=== PATIENT | female | born 1970 | race Caucasian/White ===

== ENCOUNTER → 2020-04-05 | Outpatient (CLI) | payer BC | LOC: ORTHO 10:37 | PROVIDERS: ATTEND Orthopaedic Surgery | DX: M17.0 Bilateral primary osteoarthritis of knee (principal); Z98.51 Tubal ligation status; Z90.710 Acquired absence of both cervix and uterus | CPT/HCPCS: 20610; G0463 ==

== ENCOUNTER → 2020-05-15 | Outpatient (CLI) | payer BC | LOC: ORTHO 10:54 | PROVIDERS: ATTEND Orthopaedic Surgery | DX: M17.11 Unilateral primary osteoarthritis, right knee (principal); M17.12 Unilateral primary osteoarthritis, left knee | CPT/HCPCS: 20610; G0463 ==

== ENCOUNTER 2023-04-11 18:47 | Emergency (ER) | payer SELFPAY ==
[~2023-04-11] VITALS: Ht 152.4 cm; Wt 112.0 kg
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
[2023-04-11 19:43] LABS: HEMATOCRIT 37 % (35-52); HEMOGLOBIN 11.3 g/dL (11.5-16.0); MEAN CORPUSCULAR HEMOGLOBIN 24 pg (25-34); MEAN CORPUSCULAR HGB CONC 31 g/dL (32-36); MEAN CORPUSCULAR VOLUME 77 fL (80-99); MEAN PLATELET VOLUME 9.7 fL (9.0-12.2); PLATELET COUNT 351 10^3/uL (130-400); WHITE BLOOD COUNT 8.1 10^3/uL (4.3-11.0)
[2023-04-11 19:57] LABS: ALBUMIN 4.1 GM/DL (3.2-4.5); CHLORIDE 110 MMOL/L (98-107); INR 1.1 (0.8-1.4); POTASSIUM 3.6 MMOL/L (3.6-5.0); PROTHROMBIN TIME PATIENT 14.1 SEC (12.2-14.7); SODIUM 143 MMOL/L (135-145)
[2023-04-11 19:58] LABS: CALCIUM 8.9 MG/DL (8.5-10.1)
[2023-04-11 20:00] LABS: GLUCOSE 156 MG/DL (70-105); TOTAL PROTEIN 7.3 GM/DL (6.4-8.2)
[2023-04-11] MEDS ORDERED: HOLD METFORMIN - RECEIVED CONTRAST 20 ML VIAL IV SCH (20:00)
[2023-04-11] MEDS ORDERED: IOHEXOL 350 MG/ML 100 ML (OMNIPAQUE 350) VIAL IV ONE (20:00)
[2023-04-11] MEDS ORDERED: fentaNYL INJECTION 100 MCG/2 ML VIAL IVP ONE (20:00)
[2023-04-11] MEDS ORDERED: NS 100 ML (IVPB) BAG IV ONE (20:00)
[2023-04-11 20:01] LABS: BILIRUBIN,TOTAL 0.5 MG/DL (0.1-1.0); CARBON DIOXIDE 22 MMOL/L (21-32)
[2023-04-11 20:03] LABS: ALKALINE PHOSPHATASE 114 U/L (40-136)
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
[2023-04-11 20:04] LABS: CREATININE SERUM 0.81 MG/DL (0.60-1.30); GFR ESTIMATED 87
[2023-04-11 20:05] LABS: BILIRUBIN,DIRECT 0.2 MG/DL (0.0-0.3); BILIRUBIN,INDIRECT 0.3 MG/DL; BUN/CREATININE RATIO 21
[2023-04-11 20:06] LABS: ALANINE AMINOTRANSFERASE 14 U/L (0-55)
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
[2023-04-11] MEDS ORDERED: NEOM28.34 TP (20:55)
[2023-04-11] MEDS ORDERED: ACHD5005 PO (20:55)
[2023-04-11 21:13] VITALS: BP 131/83
== END 2023-04-11 21:13 | disposition home or self-care (01) ==
LOC: EDUNIT# 18:47 → ER 18:51
DX: S22.31XA Fracture of one rib, right side, initial encounter for closed fracture (principal); V43.52XA Car driver injured in collision with other type car in traffic accident, initial encounter; Y92.410 Unspecified street and highway as the place of occurrence of the external cause
CPT/HCPCS: 70450; 71045; 71260; 72125; 73030; 73610; 80048; 80076; 84484; 85027; 85610; 85730; 93041; 99284; G0480; 36415; 80320; 93005